=== PATIENT | female | born 1965 | race Caucasian/White ===

== ENCOUNTER 2017-01-05 19:25 | Emergency (ER) | payer OTHER ==
--- NOTE | 2017-01-06 06:58 | ER ---
ADMIT: 01/05/2017 RM/LOC: ER [facility] MR#: [id number] [address] [id number] VERONICA PADILLA [address] [address] Emergency Room Report SEX: F AGE: 51 : 1965 DATE: 01/05/2017 HISTORY OF PRESENT ILLNESS: The patient is a 51-year-old female, came to the ER with chief complaint of left gluteal hip pain. Originally, the patient stepped on rock and fell and twisted left hip and felt kind of snapping in the left hip. After that the patient has antalgic gait because of the mild to moderate pain in the left gluteal area. The patient denies any numbness, tingling, or pain in the ankle and knees. The patient states most of the pain is a posterior gluteal and also radiates down to the posterior thigh. The patient denies any head trauma or other injuries. PHYSICAL EXAMINATION: HEAD, NECK CHEST, ABDOMEN: Noncontributory negative. Bilateral hips have normal passive and active range of motion. KNEES: Knee examination is completely normal without any effusion and ligamentous exam is also normal. Ankles nontender, no swelling and ligamentous exam is also normal. There is no tenderness or swelling in the back of the lower leg. On the posterior left thigh, I did not see any ecchymosis or any swelling. The patient had mild tenderness on palpation of the femoral head, x-ray did not show any fracture, dislocation, or acute changes. The patient was discharged to home with return precautions, advised to use Motrin for pain control and also cold and warm compress after that and also follow up with the primary doctor as needed. DIAGNOSIS: Left gluteal, hip muscle strain. Chato Quintero MD/ kamala JOB #: [id number] CC: Chato Quintero MD, Attending Physician Nikita Oliveros MD, Family Physician
== END 2017-01-05 20:55 | disposition home or self-care (01) ==
LOC: ER 19:25
DX: S76.012A Strain of muscle, fascia and tendon of left hip, initial encounter (principal); Z98.890 Other specified postprocedural states; Z79.82 Long term (current) use of aspirin; Z88.1 Allergy status to other antibiotic agents; Z88.2 Allergy status to sulfonamides; X50.1XXA Overexertion from prolonged static or awkward postures, initial encounter